=== PATIENT | female | born 1990 | race Caucasian/White ===

== ENCOUNTER 2016-10-11 06:52 | Emergency (ER) | payer SELFPAY ==
[2016-10-11] MEDS ORDERED: MORPHINE 4 MG/ML INJECTION IV ONE (07:03)
[2016-10-11] MEDS ORDERED: NS 1,000 ML IV ONE ×3 (07:03→10:14)
[2016-10-11] MEDS ORDERED: ONDANSETRON HCL 4 MG/2 ML VIAL IV STA (07:03)
[2016-10-11 07:13] VITALS: BMI 19.3
--- NOTE | 2016-10-11 07:25 | EDPRACDOC ---
- General Information Stated Complaint: BACK/ABD PAIN Time Seen by Provider: 10/11/16 06:57 Home Medications: Home Medications No Home Medications 06/04/14 Allergies/Adverse Reactions: Allergies Allergy/AdvReac Type Severity Reaction Status Date / Time No Known Allergies Allergy Verified 10/11/16 07:32 - History of Present Illness Exact Onset of Symptoms: Unknown HPI: PT PRESENTS WITH WEEKS OF PROGRESSIVE ABDOMINAL AND LUMBAR BACK PAIN. SHE ADMITS IVDA. Altered Severity: Reports: Moderate Recent Symptoms of: Denies: Trauma Relevant History: Reports: IV drug use Prehospital: Reports: EMT ED Past Medical History - History Reviewed Yes Nurses notes reviewed and agree except as marked - Patient Medical History GI/ History: Reports: Urinary Tract Infection Psychological History: Reports: Depression, Anxiety, Bipolar Disorder, Substance Use Disorder ( IV drug use: opana.) Systemic History: Denies: Cancer Surgical History: Reports: Tonsillectomy/Adnoidectomy - Family Medical History Reports: Hypertension (father) - Social Medical History Social History: Reports: Substance Use Disorder ( IV drug use: opana.) Lives In: Home EDM Review of Systems - Review of Systems Constitutional: Chills, Fatigue, Weakness Respiratory: negative: Shortness of Breath Cardiovascular: negative: Chest Pain Gastrointestinal: Nausea, Pain, Vomiting Neurological: Headache Musculoskeletal: Back (LUMBAR BACK PAIN) - Physical Exam Constitutional: Alert Oriented to: Time, Person, Place Last recorded Vital Signs: Oxygen Pulse Oxygen Saturation O2 Device Oxygen Flow Rate Fraction of Inspired Oxygen ( FIO2) - HEENT Head: negative: Deformity, Laceration Eye Exam: negative: Conjunctival Injection, Pale Conjunctiva Oropharynx: negative: Membranes Dry Nose: negative: Congestion, Discharge Neck: negative: Limited ROM - Respiratory/Cardiovascular Respiratory: Normal - CTA. negative: Accessory Muscle Use, Diminished, Tachypnea Cardiovascular: Tachycardia. negative: Irregular - GI Auscultation: Normal Palpation: Normal Tenderness: Diffuse, Mild. negative: Guarding, Rebound, Rigidity - Musculoskeletal Extremities: Radial Pulse (PALPABLE) - Integumentary Skin: Warm, Dry. negative: Rash - Neurologic Memory Impaired: Normal Motor Function: Normal Mood Description: Anxious Thought: Coherent ED Procedures - Central Line Informed of risks, benefits and alternatives described.: Yes Central Line Informed Consent Signed: Verbal Indication: Hypotension, Volume Resuscitation, Medication Administration, No peripheral access Line Procedure: Sterile drapes applied, Sterile dressing applied, Betadine prep Equipment used during procedure: Hat and Mask, Sterile Gown, Sterile Gloves Line Lumen: triple Central Line Postion: femoral (R) Anesthesia: Lidocaine cc's of anesthesia: 4 Line Position approached and secured by standard fashion: sutured, good blood return - Re-evaluation Re-evaluation 1 Re-evaluation Time: 08:51 I SUSPECT THAT THE PATIENT HAS A COMBINATION OF ENDOCARDITIS AND POSSIBLE DISCITIS GIVEN HER HISTORY OF ENDOCARDITIS AND CONTINUED IVDA WITH WORSENING LUMBAR BACK PAIN AND FECAL INCONTINENCE. Re-evaluation 2 Re-evaluation Time: 12:04 PT ACCEPTED FOR TRANSFER TO [facility] DR. GIRON. - Results 10/11/16 07:23 10/11/16 07:23 - EKG EKG #1 EKG Time: 07:25 -: Yes EKG interpreted by me Rate: bpm: 128 [place]: RAD Rhythm: ST Block: None ST: Nonsp - Focused CV Perfusion Exam Re-evaluation 1 Vital Signs: Last Vital Signs Temp 101.1 F H 10/11/16 08:45 Pulse 123 H 10/11/16 08:45 Resp 22 10/11/16 08:45 BP 91/56 L 10/11/16 08:45 Pulse Ox 95 10/11/16 08:45 Re-evaluation 2 Vital Signs: Last Vital Signs Temp 98.7 F 10/11/16 10:05 Pulse 112 10/11/16 11:35 Resp 21 10/11/16 11:35 BP 94/71 L 10/11/16 11:35 Pulse Ox 94 10/11/16 11:35 ED Critical Care Note - Critical Care Note Total Time (mins): 60 Comments: Due to the presence of and / or the risk of deterioration, my attendance to this patient required critical care time, including assessment/reassessment, documentation, ordering and interpreting ancillary studies, discussion with ED staff and consultants,patient and family, and excludes time spent on separately billable procedures. - Departure Yes I personally saw and evaluated the patient. Disposition: Trans. to Other Hospital Condition: Stable Final Diagnosis: Severe sepsis, SPLENIC EMBOLI, Polysubstance abuse Acute renal failure Qualifiers: Acute renal failure type: unspecified Qualified Code(s): N17.9 - Acute kidney failure, unspecified Anemia Qualifiers: Anemia type: unspecified type Qualified Code(s): D64.9 - Anemia, unspecified Septic pulmonary embolism Qualifiers: Chronicity: acute Instructions: Renal Failure Diet (GEN) Decision to Transfer Time: 10:00 (DR. GIRON IS ACCEPTING)
[2016-10-11 07:34] LABS: MPV 7.7 fL (7.4-10.4)
[2016-10-11] MEDS ORDERED: IBUPROFEN 600 MG TAB PO STA (07:36)
[2016-10-11 07:45] LABS: PT-INR 1.3
[2016-10-11 07:54] LABS: BLOOD UREA NITROGEN 60 MG/DL (7-17); CALC CORRECTED 9.1 MG/DL (8.4-10.2); CALCIUM 7.5 MG/DL (8.4-10.2); CALCULATED OSMOLALITY 267 MOs/Kg (270-290); CHLORIDE 95 mEq/L (98-107); ETOH-MGDL < 10 mg/dL; GLUCOSE 116 MG/DL (70-99); SODIUM LEVEL 129 mEq/L (137-146); TOTAL PROTEIN 6.6 G/DL (6.3-8.2)
[2016-10-11 07:55] LABS: SEG NEUTROPHIL 76 % (45-76)
[2016-10-11] MEDS ORDERED: Pharmacy Review for Metformin - IV Contrast Given SCH (08:00)
[2016-10-11 08:10] LABS: CPK TOTAL WITH POSSIBLE MB 37 IU/L (30-134)
[2016-10-11 08:10] LABS: ALL NEG? NO
[2016-10-11 08:28] LABS: MDMA* NEG (NEGATIVE); METHAMPHETAMINES NEG (NEGATIVE); OXYCODONE *POSITIVE* (NEGATIVE)
[2016-10-11 08:30] LABS: AMORPHOUS 1+; LEUKOCYTES/URINE NEG (NEGATIVE); NITRITE/URINE NEG (NEGATIVE); RBC/URINE TNTC (0-5); URINE OCCULT BLOOD 3+ (NEG/TRACE)
[2016-10-11] MEDS ORDERED: CEFTRIAXONE 1 GM in D5W 100 ML IV ONE (08:51)
[2016-10-11] MEDS ORDERED: HYDROmorphone 1 MG INJECTION IV ONE ×2 (08:52→10:24)
--- NOTE | 2016-10-11 09:26 | DIRPT ---
CLINICAL DATA: Intravenous drug use with weakness EXAM: CHEST 2 VIEW COMPARISON: June 15, 2014 FINDINGS: There is patchy scarring in the mid and lower lung zones bilaterally. There is no corwin edema or consolidation. The heart is mildly enlarged with a degree of pulmonary venous hypertension. No adenopathy apparent. No bone lesions. IMPRESSION: Evidence of a degree of pulmonary vascular congestion. Scattered areas of scarring. No corwin edema or consolidation. Electronically Signed By: Miguel Hrenandez III, M.D. On: 10/11/2016 09:23
--- NOTE | 2016-10-11 09:40 | DIRPT ---
CLINICAL DATA: Abdominal and lumbar pain, IV drug abuse, acute renal failure, progressive abdominal pain for several weeks EXAM: CT ABDOMEN AND PELVIS WITHOUT CONTRAST TECHNIQUE: Multidetector CT imaging of the abdomen and pelvis was performed following the standard protocol without IV contrast. Sagittal and coronal MPR images reconstructed from axial data set. COMPARISON: None FINDINGS: Slightly irregular nodules at RIGHT lower lobe measuring 12 x 10 mm image 7 and 8 x 6 mm image 5, with smaller nodule demonstrating central cavitation. These could represent septic emboli but tumor and other inflammatory nodules are not excluded. Question additional cavitary nodule at posterior sulcus LEFT lower lobe 7 mm diameter image 15. Tiny new additional nodules RIGHT lower lobe images 6 and 10. Spleen markedly enlarged measuring 14.4 x 7.8 x 21.9 cm (calculated volume 1286 mL). Subtle low-attenuation masslike area at posterior superior spleen 7.0 x 5.8 x 6.9 cm question abscess, mass or infarct. Low-attenuation of circulating blood raising question of anemia. Within limits of a nonenhanced exam no focal abnormalities of the liver, gallbladder, pancreas, kidneys or adrenal glands. Stomach and bowel loops suboptimally assessed due to lack of IV and oral contrast, no gross abnormality seen. IUD in pelvis, likely within uterus though the uterus is poorly visualized. Bladder decompressed. No additional mass, adenopathy, or free intraperitoneal air/fluid. RIGHT femoral line with small amount of soft tissue gas at RIGHT groin as well as small amount gas within the RIGHT common femoral vein. No definite acute osseous findings. IMPRESSION: Marked splenic enlargement with spleen containing a masslike area of lower attenuation question abscess, mass, or infarct. Bibasilar pulmonary nodules largest 12 mm diameter, with a in 8 mm diameter nodule showing central cavitation question septic emboli in patient with history of IV drug abuse though tumor and other inflammatory processes can cause similar nodules. Suspected anemia. These results will be called to the ordering clinician or appeals representative by the [employer], and communication documented in the PACS or [employer] Dashboard. Electronically Signed By: Terry Morrison M.D. On: 10/11/2016 09:37
--- NOTE | 2016-10-11 12:30 | CAPUECHO ---
INDICATION: SEPSIS W/ IVDA AND HX OF ENDOCARDITIS HEIGHT: 167.6 cm (5 ft 6.0 in) WEIGHT: 54.4 kg (120.0 lbs) BP: 91/65 BSA: 1.844416 m MEASUREMENTS 2D RVIDd: 2.9 cm LVOT Diam: 1.9 cm LA Diam: 2.9 cm LAESV MOD A4C: 44.0 ml LAESV MOD A2C: 45.5 ml LAESV Index (A-L): 31.64 ml/m M-MODE IVSd: 0.8 cm LVIDd: 5.0 cm LVPWd: 0.9 cm LVIDs: 3.0 cm EF(Teich): 70 % Ao Diam: 3.3 cm LA Diam: 2.5 cm DOPPLER MV E Tay: 0.88 m/s MV A Tay: 0.98 m/s MV PHT: 55.82 ms MVA By PHT: 3.94 cm LVOT Vmax: 1.27 m/s AV Vmax: 1.46 m/s SHANI Vmax, Pt: 2.52 cm TR Vmax: 3.04 m/s TR maxP mmHg RVSP: 52.15 mmHg FINDINGS ------- Procedure:2D images, m-mode, color and spectral Doppler were obtained and reviewed. ECG rhythm:Resting tachycardia (HR>100bpm). Study quality:This was a technically adequate study. Left Ventricle:The left ventricular size is normal. Left ventricular wall thickness is normal. T here is normal global left ventricular contractility. Overall left ventricular systolic function i s normal with, an EF between 60 - 65 %. Right Ventricle:The right ventricle is normal in size and function. Left Atrium:The left atrium is normal in size. Right Atrium:The right atrium is normal in size and function. Aortic Valve:The aortic valve is trileaflet and appears structurally normal. There is mild aortic valve sclerosis. Mitral Valve:Normal appearing mitral valve. No mitral regurgitation. Tricuspid Valve:The tricuspid valve appears structurally normal. [id number] tricuspid regurg itation present. The right ventricular systolic pressure, as measured by Doppler, is 52mmHg. Pulmonic Valve:The pulmonic valve is normal. There is no pulmonic regurgitation present. Aorta:The aortic root, ascending aorta and aortic arch not well visualized. IVC:Normal inferior vena cava with normal inspiratory collapse. Pericardium:There is no pericardial effusion. CONCLUSIONS 1. The left ventricular size is normal. 2. Overall left ventricular systolic function is normal with, an EF between 60 - 65 %. 3. There is mild aortic valve sclerosis. Circular echodensity on aortic valve would be vegetation or artifactual. Clinical correlation suggested. Suggest JOSE/MRI for further evaluation. 4. [id number] tricuspid regurgitation present. 5. The right ventricular systolic pressure, as measured by Doppler, is 52mmHg. Electronically Signed By: Renard Whaley MD -- Electronically Signed On: 12:27:11
[2016-10-11 20:27] VITALS: BP 95/63; PULSE 112; TEMP 98
== END 2016-10-11 12:35 | disposition short-term general hospital (02) ==
LOC: ED 06:52
DX: A41.9 Sepsis, unspecified organism (principal); I26.90 Septic pulmonary embolism without acute cor pulmonale; R65.20 Severe sepsis without septic shock; N17.9 Acute kidney failure, unspecified; I74.8 Embolism and thrombosis of other arteries; R10.9 Unspecified abdominal pain
CPT/HCPCS: 36415; 71020; 74176; 80053; 80307; 81001; 81025; 82550; 83605; 84484; 85007; 85027; 85610; 85730; 87040; 87077; 87086; 87186; 93005; 93306; 96361; 96365; 96366; 96375; 96376; 99285; J0696; J1170; J2270; J2405; J3370; J3490; J7060; J7070